=== PATIENT | female | born 1990 | race African-American/Black ===

== ENCOUNTER 2022-01-11 10:02 | Inpatient (IN) | payer MEDICAID ==
[~2022-01-11] VITALS: Ht 162.6 cm; Wt 97.2 kg
[~2022-01-11 10:02] MED LIST: ACET-1304; DICY10CA12; MESA4ENE2 PO; TRAM-297
[2022-01-11] MEDS ORDERED: SODIUM CHLORIDE 0.9% 1,000 ML IV ONE (10:30)
[2022-01-11] MEDS ORDERED: ACETAMINOPHEN 325 MG TAB PO ONE (10:30)
[2022-01-11] MEDS ORDERED: LORazepam 2MG/ML-1ML VIAL IV ONE ×3 (11:15→14:45)
[2022-01-11] MEDS ORDERED: VALPROATE INJ 1,000 MG in SODIUM CHL 0.9% 100 ML IV ONE (14:00)
[2022-01-11 14:21] LABS: Basophils # (auto) 0.1 10 ^3/uL (0-0.2); Basophils % (auto) 0.9 % (0.0-2.0); Monocytes # (auto) 0.6 10 ^3/uL (0-1.3); Neutrophils # (auto) 4.4 10 ^3/uL (1.6-8.6); Nucleated Red Blood Cells % 0.1 %
[2022-01-11 14:24] LABS: Eosinophils # (auto) 0 10 ^3/uL (0-0.8); Eosinophils % (auto) 0.4 % (0.0-7.0); Hematocrit 31.9 % (36.0-46.0); Hemoglobin 9.9 g/dL (12.2-16.2); Lymphocytes # (auto) 4.5 10 ^3/uL (0.4-5.4); Lymphocytes % (auto) 47.2 % (10.0-50.0); Mean Corpuscular Hemoglobin 21.5 pg (28.0-32.0); Mean Corpuscular Hgb Conc. 31.2 g/dL (32.0-36.0); Mean Corpuscular Volume 68.9 fL (80.0-100.0); Monocytes % (auto) 6.1 % (0.0-12.0); Neutrophils % (auto) 45.4 % (37.0-80.0); Red Blood Cells 4.63 10^6/uL (4.0-5.20); White Blood Cell 9.6 10^3/uL (4.4-10.8)
[2022-01-11 14:39] LABS: Albumin 3.6 g/dL (3.4-5.0); BUN/Creatinine Ratio 8.5; Calcium 8.2 mg/dL (8.5-10.1); Potassium 3.5 mmol/L (3.5-5.1)
[2022-01-11 14:53] LABS: Bilirubin, Total 0.6 mg/dL (0.2-1.0)
[2022-01-11] MEDS ORDERED: LORazepam 2MG/ML-1ML VIAL IV PRN (18:00)
[2022-01-11 18:36] LABS: Cholesterol 111 mg/dL (< 200)
[2022-01-11 18:39] LABS: HDL Cholesterol 45 mg/dL (40-59); LDL Cholesterol 65 mg/dL (< 100); Triglycerides 54 mg/dL (< 150)
[2022-01-11 19:08] LABS: Urine Bacteria FEW /hpf (None Seen); Urine Blood Negative /uL (Negative); Urine Mucus FEW (None Seen); Urine Specific Gravity 1.018 (1.001-1.035); Urine WBC 35 /hpf (0 - 5)
[2022-01-11 19:15] LABS: Alcohol, Urine < 3.0 mg/dL (0-10); Amphetamine Screen, Urine NEGATIVE (NEGATIVE); Barbiturate Scree,Urine NEGATIVE (NEGATIVE); Benzodiazephine Screen, Urine POSITIVE (NEGATIVE); Cannabinoid Screen, Urine NEGATIVE (NEGATIVE); Cocaine Screen, Urine NEGATIVE (NEGATIVE); Opiate Scree,Urine NEGATIVE (NEGATIVE); Phencyclidine Screen, Urine NEGATIVE (NEGATIVE)
[2022-01-11] MEDS ORDERED: LAMO25TA2 PO (20:18)
[2022-01-11] MEDS ORDERED: BACDST PO (20:18)
[2022-01-11] MEDS ORDERED: VALPROATE SODIUM 100 MG/ML 5ML VIAL IV ONE (20:31)
[2022-01-11] MEDS: VALPROATE INJ 1,000 MG in SODIUM CHL 0.9% 100 ML IV SCH (20:33)
[2022-01-11] MEDS: ONDANSETRON HCL 4 MG/2 ML VIAL IV PRN (20:43)
[2022-01-11 22:00] VITALS: BP 116/70
[2022-01-12] VITALS (14 sets, daily range): BP systolic 91–128; BP diastolic 50–82
[2022-01-12] MEDS: VALPROATE INJ 1,000 MG in SODIUM CHL 0.9% 100 ML IV SCH (10:00)
[2022-01-12 10:05] LABS: Basophils # (auto) 0.1 10 ^3/uL (0-0.2); Eosinophils # (auto) 0 10 ^3/uL (0-0.8); Eosinophils % (auto) 0.2 % (0.0-7.0); Monocytes # (auto) 0.2 10 ^3/uL (0-1.3); Red Cell Distribution Width 17.9 % (11.8-14.3)
[2022-01-12 10:14] LABS: Basophils % (auto) 0.9 % (0.0-2.0); Hematocrit 32.8 % (36.0-46.0); Hemoglobin 9.9 g/dL (12.2-16.2); Lymphocytes # (auto) 2.3 10 ^3/uL (0.4-5.4); Lymphocytes % (auto) 36.3 % (10.0-50.0); Mean Corpuscular Hemoglobin 20.5 pg (28.0-32.0); Mean Corpuscular Hgb Conc. 30.2 g/dL (32.0-36.0); Mean Corpuscular Volume 67.9 fL (80.0-100.0); Monocytes % (auto) 3.9 % (0.0-12.0); Neutrophils # (auto) 3.8 10 ^3/uL (1.6-8.6); Neutrophils % (auto) 58.7 % (37.0-80.0); Nucleated Red Blood Cells % 0.1 %; Red Blood Cells 4.83 10^6/uL (4.0-5.20); White Blood Cell 6.4 10^3/uL (4.4-10.8)
[2022-01-12 12:03] LABS: Albumin 3.5 g/dL (3.4-5.0); Calcium 8.6 mg/dL (8.5-10.1); Potassium 4.2 mmol/L (3.5-5.1)
[2022-01-12 12:07] LABS: BUN/Creatinine Ratio 10.3; Bilirubin, Total 1.2 mg/dL (0.2-1.0)
[2022-01-12] MEDS ORDERED: VALPROIC ACID 250 MG/5 ML ORAL SOLN PO SCH (13:10)
[2022-01-12] MEDS ORDERED: LORazepam MDV 2MG/ML 50 MG in SODIUM CHL 0.9% 25 ML IV SCH (20:30)
[2022-01-12] MEDS: lamoTRIgine 25 MG TAB PO SCH (22:08)
[2022-01-12] MEDS: ACETAMINOPHEN 325 MG TAB PO PRN (22:12)
[2022-01-13] VITALS (29 sets, daily range): BP systolic 82–120; BP diastolic 40–77
[2022-01-13] MEDS: LORazepam 2MG/ML-1ML VIAL IV PRN ×2 (05:41→15:43)
[2022-01-13] MEDS: lamoTRIgine 25 MG TAB PO SCH ×2 (09:58→21:55)
[2022-01-13] MEDS: ALPRAZolam 0.5 MG TAB PO PRN (21:56)
[2022-01-13] MEDS: ONDANSETRON HCL 4 MG/2 ML VIAL IV PRN (22:01)
[2022-01-14] VITALS (11 sets, daily range): BP systolic 98–119; BP diastolic 56–76
[2022-01-14] MEDS: ALPRAZolam 0.5 MG TAB PO PRN ×2 (06:45→23:00)
[2022-01-14] MEDS: LORazepam 2MG/ML-1ML VIAL IV PRN ×6 (06:49→22:31)
[2022-01-14] MEDS: cefTRIAXone 1GM/50ML D5W 50 ML IV SCH (09:54)
[2022-01-14] MEDS: lamoTRIgine 25 MG TAB PO SCH ×2 (10:39→20:55)
[2022-01-14] MEDS: ACETAMINOPHEN 325 MG TAB PO PRN (16:39)
[2022-01-14] MEDS ORDERED: HYDROcodone-ACET 5/325MG TAB PO PRN (20:30)
[2022-01-15] VITALS: BP 109/73
[2022-01-15] MEDS: LORazepam 2MG/ML-1ML VIAL IV PRN ×10 (00:34→22:37)
[2022-01-15 04:00] VITALS: BP 98/61
[2022-01-15 06:00] VITALS: BP 99/59
[2022-01-15 08:00] VITALS: BP 102/68
[2022-01-15] MEDS: lamoTRIgine 25 MG TAB PO SCH ×2 (09:55→22:01)
[2022-01-15] MEDS: cefTRIAXone 1GM/50ML D5W 50 ML IV SCH (09:55)
[2022-01-15] MEDS ORDERED: HYDROcodone-ACET 7.5/325MG TAB PO PRN (22:15)
== END 2022-01-15 22:50 | disposition short-term general hospital (02) | DRG 53 ==
LOC: ER 10:02 → EDBD 10:02 → TELE-CENTR 18:00 → ICU WEST 01-12 19:01 → TELE-WESTW 01-15 11:03
PROVIDERS: ADMIT Registered Nurse; ATTEND Internal Medicine
DX: G40.401 Other generalized epilepsy and epileptic syndromes, not intractable, with status epilepticus (principal); D50.9 Iron deficiency anemia, unspecified; E66.01 Morbid (severe) obesity due to excess calories; Z68.37 Body mass index [BMI] 37.0-37.9, adult; N39.0 Urinary tract infection, site not specified; Z79.899 Other long term (current) drug therapy; Z82.49 Family history of ischemic heart disease and other diseases of the circulatory system; Z88.8 Allergy status to other drugs, medicaments and biological substances
CPT/HCPCS: 36415; 70450; 70551; 80053; 80061; 80307; 80320; 81001; 81025; 83735; 84443; 85025; 87081; 93005; 93306; 93886; 95819; 96361; 96365; 96375; 96376; 99291; G0378; J0696; J2405

== ENCOUNTER 2023-10-04 02:02 | Emergency (ER) | payer MEDICAID ==
[~2023-10-04] VITALS: Ht 170.2 cm; Wt 95.5 kg
[~2023-10-04 02:02] MED LIST changes: -ACET-1304; +BACDST PO; -DICY10CA12; +LAMO25TA2 PO; -MESA4ENE2 PO; -TRAM-297
[2023-10-04 03:08] LABS: Basophils # (auto) 0.1 10 ^3/uL (0-0.2); Basophils % (auto) 0.7 % (0.0-2.0); Eosinophils # (auto) 0.1 10 ^3/uL (0-0.8); Eosinophils % (auto) 1.1 % (0.0-7.0); Hematocrit 39.9 % (36.0-46.0); Lymphocytes # (auto) 3.6 10 ^3/uL (0.4-5.4); Lymphocytes % (auto) 30.7 % (10.0-50.0); Mean Corpuscular Hemoglobin 23.5 pg (28.0-32.0); Mean Corpuscular Hgb Conc. 30.1 g/dL (32.0-36.0); Mean Corpuscular Volume 78.1 fL (80.0-100.0); Monocytes # (auto) 0.7 10 ^3/uL (0-1.3); Monocytes % (auto) 5.8 % (0.0-12.0); Neutrophils # (auto) 7.3 10 ^3/uL (1.6-8.6); Neutrophils % (auto) 61.7 % (37.0-80.0); Red Blood Cells 5.11 10^6/uL (4.0-5.20); Red Cell Distribution Width 19.1 % (11.8-14.3); White Blood Cell 11.8 10^3/uL (4.4-10.8)
[2023-10-04 03:25] LABS: Alanine Aminotransferase 36 U/L (7-40); Albumin 4.5 g/dL (3.2-4.8); Alkaline Phosphatase 96 U/L (46-116); Anion Gap 10 (5-15); Aspartate Aminotransferase 22 U/L (13-40); BUN/Creatinine Ratio 9.3 (10.0-20.0); Bilirubin, Total 0.3 mg/dL (0.2-1.0); Blood Alcohol 261.7 mg/dL (<10); Blood Urea Nitrogen 7 mg/dL (9-23); Calcium 9.3 mg/dL (8.5-10.1); Carbon Dioxide 20 mmol/L (20-30); Chloride 112 mmol/L (98-107); Glucose 86 mg/dL (74-106); Potassium 3.6 mmol/L (3.5-5.1); Sodium 142 mmol/L (136-145)
[2023-10-04 05:24] VITALS: BP 110/64; PULSE 74; RESP 16; TEMP 98.7; O2SAT 97
== END 2023-10-04 05:23 | disposition home or self-care (01) ==
LOC: ER 02:02 → EDBD 02:02 → ER 05:23
DX: R55 Syncope and collapse (principal); F10.129 Alcohol abuse with intoxication, unspecified; R56.9 Unspecified convulsions; Y90.8 Blood alcohol level of 240 mg/100 ml or more; Z86.2 Personal history of diseases of the blood and blood-forming organs and certain disorders involving the immune mechanism; Z88.8 Allergy status to other drugs, medicaments and biological substances
CPT/HCPCS: 36415; 80053; 80320; 85025; 93005